=== PATIENT | male | born 1955 | race Caucasian/White ===

== ENCOUNTER 2024-07-20 11:32 | Emergency (ER) | payer MEDICARE, OTHER ==
[2024-07-20] MEDS ORDERED: Bacitracin 1 PK ONE (12:14)
== END 2024-07-20 12:29 | disposition home or self-care (01) ==
LOC: MADERS 11:32
DX: T24.212A Burn of second degree of left thigh, initial encounter (principal); T23.232A Burn of second degree of multiple left fingers (nail), not including thumb, initial encounter; T31.0 Burns involving less than 10% of body surface; I25.10 Atherosclerotic heart disease of native coronary artery without angina pectoris; I25.2 Old myocardial infarction; F17.220 Nicotine dependence, chewing tobacco, uncomplicated; X06.2XXA Exposure to ignition of other clothing and apparel, initial encounter
CPT/HCPCS: 16020; 99283

== ENCOUNTER 2025-03-19 10:41 | Outpatient (CLI) | payer MEDICARE, OTHER ==
[2025-03-19 11:11] LABS: ALT (SGPT) 24 U/L (Less than 45); AST (SGOT) 31 U/L (11-34); Albumin 4.2 g/dL (3.1-4.5); Alkaline Phosphatase 73 U/L (40-110); Anion Gap 14 mmol/L (10-20); BUN (Urea Nitrogen) 19 mg/dL (8.4-25.7); Bilirubin, Total 1.2 mg/dL (0.3-1.2); Calc. Creatinine Clearance 0 mL/min (70-130); Calcium 8.7 mg/dL (7.8-10.44); Carbon Dioxide 21 mmol/L (23-31); Cardiac Risk 2.6 (Less than 4.5); Chloride 110 mmol/L (98-107); Cholesterol 105 mg/dl (< 200 Desired); Globulin 3.0 g/dL (2.4-3.5); Glucose 116 mg/dL (83-110); HDL Cholesterol 41 mg/dL (>60 Neg Risk); LDL Cholesterol, Calculated 51 mg/dL; Potassium 4.5 mmol/L (3.5-5.1); Sodium 140 mmol/L (136-145); Triglycerides 65 mg/dL (Less than 150)
== END 2025-03-19 10:42 | disposition home or self-care (01) ==
LOC: MADLAB 10:41
PROVIDERS: ATTEND Internal Medicine Cardiovascular Disease
DX: I50.22 Chronic systolic (congestive) heart failure (principal)
CPT/HCPCS: 36415; 80053; 80061